=== PATIENT | female | born 1995 | race Caucasian/White ===

== ENCOUNTER 2016-11-27 09:08 | Emergency (ER) | payer OTHER ==
[~2016-11-27] VITALS: Ht 160 cm; Wt 106.0 kg
[2016-11-27 09:11] VITALS: Ht 160 cm; Wt 106.0 kg
[2016-11-27] MEDS ORDERED: BUPIVACAINE 0.25% (MPF) 30 ML INJ INJ ONE (11:00)
[2016-11-27] MEDS ORDERED: CYCL-319 PO (12:39)
[2016-11-27] MEDS ORDERED: IBUP800T25 PO (12:39)
[2016-11-27 12:47] VITALS: BP 109/66; PULSE 72; RESP 19; TEMP 98.2
--- NOTE | 2016-11-27 15:46 | ERD ---
ER Documentation Chief Complaint Date/Time DATE: 11/27/16 TIME: 15:39 Chief Complaint LOWER BACK PAIN HPI 21-year-old female complaining of left-sided back pain 6 days. Patient stated that she feel "tension" in her back. The pain is worse when she moves. Patient says she had knee pain prior to the onset of back pain, she was limping to favor her knee. Her back pain started shortly after. Patient has a gradual onset, has become progressively worse. Denies fever or chills. Denies falls or heavy lifting. Denies saddle paresthesia. Denies bowel bladder dysfunction. ROS All systems reviewed and are negative except as per history of present illness. Medications Home Meds Active Scripts Cyclobenzaprine Hcl* (Cyclobenzaprine Hcl*) 10 Mg Tablet, 10 MG PO TID, #15 TAB Prov:NICOLETTE COURTNEY. [employer] 11/27/16 Ibuprofen* (Motrin*) 800 Mg Tab, 800 MG PO Q8 Y for PAIN AND OR ELEVATED TEMP, # 30 TAB Prov:NICOLETTE COURTNEY. [employer] WORKER 11/27/16 Allergies Allergies: Coded Allergies: No Known Allergy (Unverified , 11/27/16) PMhx/Soc Medical and Surgical Hx: pt denies Medical Hx, pt denies Surgical Hx Hx Alcohol Use: No Hx Substance Use: No Hx Tobacco Use: No Smoking Status: Never smoker Physical Exam Vitals Vital Signs Date Time Temp Pulse Resp B/P Pulse Ox O2 Delivery O2 Flow Rate FiO2 11/27/16 12:47 98.2 72 19 109/66 100 11/27/16 09:11 99.3 121 22 137/92 94 Physical Exam General: Well-developed, well-nourished, conscious and coherent, in no distress Skin: Warm and dry without rash, good texture and turgor Head: Normocephalic without evidence of trauma Eyes: Sclera and conjunctivae normal; pupils equal, round, and reactive to light; extraocular movements are intact Neck: Supple without meningismus or adenopathy. Carotids are equal. Trachea midline. No bruits or JVD Chest: Normal AP diameter. Good expansion without retractions. Nontender. Lungs are clear to auscultate bilaterally with good tidal volume Heart: Regular rate and rhythm. No murmur, rub, or gallops heard Back: Without spinal or CVA tenderness. Left mid back and left buttock muscle spasm noted. Extremities: Full range of motion. Good strength bilaterally. No clubbing, cyanosis, or edema. Peripheral pulses are intact. Sensation intact Neuro: Alert and oriented 4, GCS 15. Cranial nerves grossly intact. Motor and sensory exams nonfocal. Moves all extremities. Speech clear. Gait normal Results 24 hrs Current Medications Medications (Trade) Dose Ordered Sig/Nithin Route PRN Reason Start Time Stop Time Status Last Admin Dose Admin Bupivacaine HCl (Marcaine 0.25% (Mpf) 30 ml) 30 ml ONCE ONCE INJ 11/27/16 11:00 11/27/16 11:01 DC Procedures/MDM Procedure note: Trigger point injection Trigger point injection performed by me. 10 mL of bupivacaine each is injected into left mid back left buttock. Total number muscle groups injected: 2. Patient reports improvement of pain after the trigger point injection. Well-appearing 21-year-old female presented ED with muscle spasm on her back. I doubt spinal fracture, subluxation, spinal epidural abscess, or cauda equina syndrome. Patient appears well, stable for discharge and outpatient management. Medical decision making shared with patient and family. Education provided to patient and family. Patient and family expressed understanding of the plan. Medications on discharge: Ibuprofen, Flexeril. Follow-up: Primary care provider in 2-3 days or return to ED if worse. Departure Diagnosis: Primary Impression: Back spasm Condition: Good Patient Instructions: Back Spasm, No Trauma Referrals: [facility] YOU HAVE RECEIVED A MEDICAL SCREENING EXAM AND THE RESULTS INDICATE THAT YOU DO NOT HAVE A CONDITION THAT REQUIRES URGENT TREATMENT IN THE EMERGENCY DEPARTMENT. FURTHER EVALUATION AND TREATMENT OF YOUR CONDITION CAN WAIT UNTIL YOU ARE SEEN IN YOUR DOCTORS OFFICE WITHIN THE NEXT 1-2 DAYS. IT IS YOUR RESPONSIBILITY TO MAKE AN APPOINTMENT FOR FOLOW-UP CARE. IF YOU HAVE A PRIMARY DOCTOR --you should call your primary doctor and schedule an appointment IF YOU DO NOT HAVE A PRIMARY DOCTOR YOU CAN CALL OUR PHYSICIAN REFERRAL HOTLINE AT IF YOU CAN NOT AFFORD TO SEE A PHYSICIAN YOU CAN CHOSE FROM THE FOLLOWING [facility] [address] [facility]. [facility] [address] [facility]. [facility] [address] [facility]. [facility] [address] [facility]. [facility] [address] [facility] [address] Additional Instructions: Call your primary care doctor TOMORROW for an appointment during the next 2-3 days.See the doctor sooner or return here if your condition worsens before your appointment time. NICOLETTE COURTNEY. TRAMAINE Nov 27, 2016 15:46
== END 2016-11-27 12:48 | disposition home or self-care (01) ==
LOC: FTE 09:08
DX: M62.830 Muscle spasm of back (principal)
CPT/HCPCS: 20552; Z7502; Z7610